=== PATIENT | male | born 1970 | race Hispanic/Latino ===

== ENCOUNTER 2021-02-24 20:34 | Emergency (ER) | payer OTHER ==
[~2021-02-24] VITALS: Ht 180.3 cm; Wt 70.3 kg
[2021-02-24] MEDS ORDERED: KETOROLAC TROMETHAMINE 60 MG/2 ML VIAL IM ONE (21:15)
[2021-02-24] MEDS ORDERED: CYCLOBENZAPRINE5 MG PO (22:58)
[2021-02-24] MEDS ORDERED: IBUPROFEN600 MG PO (22:58)
== END 2021-02-24 23:30 | disposition home or self-care (01) ==
LOC: ER 20:47
DX: M54.50 Low back pain, unspecified (principal); V43.52XA Car driver injured in collision with other type car in traffic accident, initial encounter; Y92.488 Other paved roadways as the place of occurrence of the external cause
CPT/HCPCS: 72131; 99283; J1885